=== PATIENT | female | born 1940 | race Caucasian/White ===

== ENCOUNTER 2017-10-04 10:32 | Emergency (ER) | payer MEDICARE, OTHER ==
[~2017-10-04] VITALS: Ht 165.1 cm; Wt 83.0 kg
[2017-10-04 11:18] LABS: BASOPHILS % (AUTO) 0.2 % (0-1); EOSINOPHILS # (AUTO) 0.2 X10'3 (0-0.9); EOSINOPHILS % (AUTO) 1.6 % (0-6); HEMATOCRIT 41.1 % (35.0-45.0); HEMOGLOBIN 13.4 g/dl (12.0-16.0); LYMPHOCYTES # (AUTO) 1.3 X10'3 (1.1-4.8); LYMPHOCYTES % (AUTO) 12.1 % (21-51); MEAN CORPUSCULAR HEMOGLOBIN 31.4 PG (27.0-31.0); MEAN CORPUSCULAR HGB CONC 32.6 % (33.0-36.5); MEAN CORPUSCULAR VOLUME 96.2 FL (78-98); MEAN PLATELET VOLUME 8.5 FL (7.4-10.4); MONOCYTES # (AUTO) 0.7 X10'3 (0-0.9); MONOCYTES % (AUTO) 6.5 % (2-12); NEUTROPHILS # (AUTO) 8.6 X10'3 (1.8-7.7); NEUTROPHILS % (AUTO) 79.6 % (42-75); PLATELET COUNT 205 X10'3 (140-440); RED BLOOD COUNT 4.27 X10'6 (4.20-5.60); RED CELL DISTRIBUTION WIDTH 16.7 % (11.5-14.5); WHITE BLOOD COUNT 10.8 X10'3 (4.5-11.0)
[2017-10-04 11:28] LABS: INR 1.1 INR; PARTIAL THROMBOPLASTIN TIME 25 SECONDS (22-32); PROTHROMBIN TIME 11.1 SECONDS (9.0-12.0)
[2017-10-04 11:32] LABS: ALANINE AMINOTRANSFERASE 17 U/L (12-78); ALBUMIN 3.4 G/DL (3.4-5.0); ALBUMIN/GLOBULIN RATIO 0.9 (1.1-1.5); ALKALINE PHOSPHATASE 86 IU/L (46-116); ANION GAP 9 (8-16); ASPARTATE AMINO TRANSFERASE 21 U/L (10-37); BILIRUBIN,TOTAL 1.2 MG/DL (0.1-1.0); BLOOD UREA NITROGEN 14 MG/DL (7-18); BUN/CREATININE RATIO 17.3 (6.6-38.0); CALCIUM 9.2 MG/DL (8.5-10.1); CHLORIDE 105 MMOL/L (99-107); CREATININE 0.81 MG/DL (0.40-0.90); GLUCOSE 132 MG/DL (70-104); POTASSIUM 3.5 MMOL/L (3.5-5.1); SODIUM 144 MMOL/L (135-145); TOTAL CARBON DIOXIDE 29.8 MMOL/L (24-32); TOTAL PROTEIN 7.2 G/DL (6.4-8.2); eGFR 68 ML/MIN
[2017-10-04 11:36] LABS: TROPONIN I 0.05 NG/ML (0.0-0.05)
[2017-10-04] MEDS ORDERED: HYDROcodone/acetaminophen 5mg/325mg tablet PO ONE (12:10)
[2017-10-04 12:42] VITALS: BP 136/90
== END 2017-10-04 12:42 | disposition home or self-care (01) ==
LOC: ER 10:32
DX: R51 Headache (principal); R53.1 Weakness; M06.9 Rheumatoid arthritis, unspecified
CPT/HCPCS: 36415; 70450; 71010; 80053; 82948; 84484; 85025; 85610; 85730; 93005; 99285

== ENCOUNTER 2018-01-24 11:54 | Emergency (ER) | payer MEDICARE, OTHER ==
[~2018-01-24 11:54] MED LIST: calcium chloride 100 MG/1 ML inj IV ONE; dextrose 50%-water 50ml dispensing syringe IV ONE; epiNEPHrine 0.1mg/ml 10ml syringe ONE; etomidate 2mg/ml inj. ONE; rocuronium 10mg/ml inj IV ONE; sodium bicarbonate (8.4%) 1 mEq/ml syringe ONE
[2018-01-24 12:05] LABS: ISTAT CREATININE 0.8 mg/dL (0.6-1.1); ISTAT HGB 13.6 g/dl (12.0-16.0); ISTAT IONIZED CALCIUM 1.16 mmol/L (1.03-1.32); ISTAT K 4.5 mmol/L (3.5-5.1); POC BUN/CREATININE RATIO 21.3 (6.6-38.0)
== END 2018-01-24 15:00 | disposition expired ==
LOC: EDBD 11:54 → ER 11:55
DX: I46.9 Cardiac arrest, cause unspecified (principal); M19.90 Unspecified osteoarthritis, unspecified site
CPT/HCPCS: 36680; 80047; 92950; 99285; J0171; J3490; J7030